=== PATIENT | female | born 1980 | race Caucasian/White ===

== ENCOUNTER 2017-01-11 13:04 | Emergency (ER) | payer MEDICAID ==
[~2017-01-11] VITALS: Ht 162.6 cm; Wt 91.0 kg
[2017-01-11 13:27] VITALS: BP 120/73
== END 2017-01-11 17:53 | disposition home or self-care (01) ==
LOC: ER 16:07
DX: H11.001 Unspecified pterygium of right eye (principal)
CPT/HCPCS: 99282